=== PATIENT | female | born 2000 | race Caucasian/White ===

== ENCOUNTER 2020-07-17 12:55 | Outpatient (REF) | payer OTHER, SELFPAY ==
[2020-07-18 10:26] LABS: HBS Num1 0.35 mIU/mL (0-7.99); ~Hepatitis B Surface Antibody NONREACTIVE (Nonreactive)
[2020-07-18 12:33] LABS: Rubella IgG Antibody 1.86 Index; Varicella IgG Antibody <135.00 index
[2020-07-19 21:12] LABS: TS Negative Control Passed; TS Panel A 0; TS Panel B 0; TS Positive Control Passed; TSpotTB Negative (SeeBelow)
== END 2020-07-17 12:56 | disposition home or self-care (01) ==
LOC: HO.HMGCLDS 12:55
PROVIDERS: Internal Medicine; Visit Provider Nurse Practitioner Family
DX: Z02.0 Encounter for examination for admission to educational institution (principal); Z01.84 Encounter for antibody response examination
CPT/HCPCS: 36415; 86481; 86706; 86735; 86762; 86765; 86787

== ENCOUNTER 2020-09-30 12:46 | Outpatient (REF) | payer OTHER, SELFPAY ==
[2020-09-30 13:56] LABS: Hematocrit 43.3 % (37-47); Hemoglobin 14.3 g/dl (12.0-16.0); Mean Corpuscular Hemoglobin 28.8 pg (27.0-33.0); Mean Corpuscular Volume 87.1 fL (80-98); Mean Platelet Volume 10.2 fL (9.4-12.3); Platelet Count 351 X10*3/uL (160-400); Red Blood Count 4.97 X10*6/uL (4.20-5.50); Red Cell Distribution Width 12.8 % (11.0-16.0)
== END 2020-09-30 12:47 | disposition home or self-care (01) ==
LOC: HO.WFDLDS 12:46
PROVIDERS: Visit Provider Hospitalist
DX: Z00.00 Encounter for general adult medical examination without abnormal findings (principal)
CPT/HCPCS: 36415; 85027

== ENCOUNTER 2020-11-26 12:00 | Outpatient (REF) | payer OTHER, SELFPAY ==
[2020-11-27 08:14] LABS: HBc Num1 0.11 S/CO (0.00-0.79); Hepatitis B Core Antibody Nonreactive (Nonreactive); ~Hepatitis B Surface Antibody REACTIVE (Nonreactive)
[2020-11-27 08:41] LABS: HBsAGNum1 0.17 S/CO (0.00-0.99); Hepatitis B Surface Antigen Negative (Negative); ~HepC Num1 0.07 S/CO (0.00-0.79); ~Hepatitis C Antibody Nonreactive (Nonreactive)
== END 2020-11-26 12:01 | disposition home or self-care (01) ==
LOC: HO.WFDLDS 12:00
PROVIDERS: Visit Provider Family Medicine
DX: Z01.84 Encounter for antibody response examination (principal); Z11.3 Encounter for screening for infections with a predominantly sexual mode of transmission
CPT/HCPCS: 36415; 86704; 86706; 86803; 87340

== ENCOUNTER → 2021-03-07 13:22 | Outpatient (BNVA) | payer SELFPAY | PROVIDERS: PCP Hospitalist | DX: Z76.89 Persons encountering health services in other specified circumstances (principal) ==

== ENCOUNTER 2021-11-18 09:18 | Outpatient (REF) | payer OTHER, SELFPAY ==
[2021-11-20 23:16] LABS: TS Negative Control Passed; TS Panel A 0; TS Panel B 0; TS Positive Control Passed; TSpotTB Negative (Negative)
== END 2021-11-18 09:19 | disposition home or self-care (01) ==
LOC: HO.HMGCLDS 09:18
PROVIDERS: PCP Hospitalist; Visit Provider Hospitalist
DX: Z11.1 Encounter for screening for respiratory tuberculosis (principal)
CPT/HCPCS: 36415; 86481

== ENCOUNTER → 2022-02-16 13:19 | Outpatient (BNVA) | payer SELFPAY | PROVIDERS: PCP Hospitalist | DX: Z02.83 Encounter for blood-alcohol and blood-drug test (principal) ==